=== PATIENT | male | born 2000 | race Caucasian/White ===

== ENCOUNTER 2020-08-19 06:54 | Outpatient (NON) | payer OTHER, SELFPAY ==
[2020-08-19 21:58] LABS: SARS-CoV-2 RNA PCR Negative
== END 2020-08-19 06:55 ==
LOC: ANHCOVIDDT 07:07
PROVIDERS: PCP Internal Medicine; Visit Provider Internal Medicine
DX: Z20.822 Contact with and (suspected) exposure to COVID-19 (principal)
CPT/HCPCS: C9803; U0003; U0005

== ENCOUNTER 2023-01-17 11:07 | Outpatient (CLI) | payer OTHER, SELFPAY ==
[2023-01-19 12:18] LABS: NIL 0.01 IU/mL; Quantiferon TB Plus, 1T NEGATIVE (NEGATIVE); TB1-NIL 0.01 IU/mL
== END 2023-01-17 11:08 | disposition home or self-care (01) ==
LOC: ANHLAB 11:10
PROVIDERS: PCP Internal Medicine; Visit Provider Internal Medicine
DX: Z11.1 Encounter for screening for respiratory tuberculosis (principal)
CPT/HCPCS: 36415; 86480